=== PATIENT | male | born 1965 | race Caucasian/White ===

== ENCOUNTER 2018-06-14 12:07 | Emergency (ER) | payer BC, OTHER ==
[2018-06-14] MEDS ORDERED: Ondansetron 4 MG/2 ML SDV IVPUSH ONE (13:06)
[2018-06-14] MEDS ORDERED: Sodium Chloride 0.9% 10 ML Syringe FLUSH PRN (13:06)
[2018-06-14] MEDS ORDERED: HYDROmorphone 0.5 MG/0.5 ML Syringe IVPUSH ONE ×2 (13:06→16:12)
--- NOTE | 2018-06-14 13:11 | EDM.PDOC ---
ED HPI GENERAL MEDICAL PROBLEM - General Chief Complaint: Upper Extremity Injury/Pain Stated Complaint: FLUIDS IN ELBOW AFTER SURGERY/CHEST PAIN Time Seen by Provider: 06/14/18 12:52 Source of Information: Reports: Patient History Limitations: Reports: No Limitations - History of Present Illness INITIAL COMMENTS - FREE TEXT/NARRATIVE: On exam patient does have a red and swollen right olecranon. He is able to flex and extend the arm at the elbow with increasing pain noted to the olecranon. In addition he complains of chronic wrist pain since having surgery on the affected extremity 29 April at [facility]. It was found to be gout related. He has since beeb evaluated by Kerby lEisa weekly since surgery. He was taking tramadol but became nauseated with this medication only when taken on an empty stomach. He's also been taking indomethacin with no relief. As of recently he's been taking Tylenol. Pain is localized with no radiation. In addition he has been experiencing some intermittent chest discomfort that comes and goes described as spasming sensation. States he is mildly short of breath today. There is no history of DVT or PE. He has noticed some increased swelling to his right extremity with increasing pain to his right ankle. He states this is following a pattern of gout. Denies increasing pain with palpation of the posterior aspect of the leg noted. He denies any recent trauma that precipitated the swelling to the right ankle. Again he's been having some intermittent pain to his chest. Pain is worse with taking a deep breath. Described as a sharp sensation that would wax and wane with intensity. Worsened with palpation and taking a deep breath.He himself has no history of coronary disease but notes his dad at age 57. Denies any pain into his abdomen or pain radiating into his lower extremities from his abdomen. Patient does carry a history of hypertension, hypercholesterolemia, and gout. Patient does not smoke. Alcohol use seldom. Denies any increased intake of red meats. Current medications include Tylenol, allopurinol, aspirin, indomethacin, and altace. Right Elbow Pain Score (Numeric/FACES): 10 - Related Data Allergies Allergy/AdvReac Type Severity Reaction Status Date / Time tramadol Allergy Stomach Verified 06/14/18 12:19 Upset Home Meds: Home Meds Acetaminophen 325 mg PO 06/14/18 [History] Acetaminophen/HYDROcodone [Corral 325-5 MG] 1 tab PO Q6H PRN #12 tablet 06/14/18 [Rx] Allopurinol [Zyloprim] 100 mg PO DAILY 06/14/18 [History] Aspirin [Halfprin] 06/14/18 [History] Clindamycin HCl 300 mg PO TID #30 capsule 06/14/18 [Rx] Indomethacin [Indocin] 50 mg PO BID 06/14/18 [History] Metoclopramide HCl [Reglan] 5 mg PO TID PRN #12 tablet 06/14/18 [Rx] Ramipril [Altace] 10 mg PO DAILY 06/14/18 [History] Sennosides/Docusate Sodium [Senna-Docusate Sodium Tablet] 1 each PO 06/14/18 [ History] Sulfamethoxazole/Trimethoprim [Sulfamethoxazole-Tmp Ds Tablet] 06/14/18 [ History] Past Medical History Cardiovascular History: Reports: High Cholesterol Social & Family History - Tobacco Use Smoking Status *Q: Unknown Ever Smoked Review of Systems - Review of Systems Review Of Systems: ROS reveals no pertinent complaints other than HPI. ED EXAM, GENERAL - Physical Exam Exam: See Below Exam Limited By: No Limitations General Appearance: Alert, WD/WN, Mild Distress Eye Exam: Bilateral Eye: PERRL Ears: Hearing Grossly Normal Nose: Normal Inspection Throat/Mouth: Normal Voice, No Airway Compromise Neck: Supple, Carotid Bruit Respiratory/Chest: No Respiratory Distress, Lungs Clear, Normal Breath Sounds, No Accessory Muscle Use, Chest Non-Tender Cardiovascular: Normal Peripheral Pulses, Regular Rate, Rhythm, No Murmur Peripheral Pulses: 2+: Radial (L), Radial (R), Posterior Tibial (L), Posterior Tibial (R) GI/Abdominal: Normal Bowel Sounds, Soft, Non-Tender, No Organomegaly, No Distention Back Exam: Normal Inspection. No: CVA Tenderness (L), CVA Tenderness (R) Extremities: Normal Inspection, Normal Range of Motion, Non-Tender, No Pedal Edema, Normal Capillary Refill, Other (Increased swelling and redness to the right elbow with pain pinpoint along the olecranon. Pain is worsen with flexion extension of the arm at the elbow. No sensory changes distally. Continues to have pain to the right wrist which she states is chronic. Surgical scar to the dorsal aspect of the right wrist. No sensory changes noted. On examination the right lower extremity increased swelling to the right ankle with no stomach and pain with palpation. No sensory changes noted. Swelling to the right leg also noted in comparison to the left leg. No pain along the posterior aspect of the leg. Skin is pink warm and dry. Peripheral pulses are intact.) Neurological: Alert, Oriented, CN II-XII Intact, Normal Cognition, Normal Gait, No Motor/Sensory Deficits Psychiatric: Normal Affect, Normal Mood Skin Exam: Warm, Dry, Intact Course - Vital Signs Last Recorded V/S: Last Vital Signs Temp 98.1 F 06/14/18 12:19 Pulse 97 06/14/18 12:19 Resp 18 06/14/18 12:19 BP 122/97 H 06/14/18 12:19 Pulse Ox 97 06/14/18 12:19 - Orders/Labs/Meds Orders: Active Orders 24 hr Category Date Time Status EKG Documentation Completion [RC] ASDIRECTED Care 06/14/18 12:37 Active Peripheral IV Care [RC] . DIRECTED Care 06/14/18 13:06 Active CULTURE BODY FLUID + SMEAR [RM] Stat Lab 06/14/18 15:13 Ordered SYNOVIAL CRYSTALS Stat Lab 06/14/18 15:04 Received Peripheral IV Insertion Adult [OM.PC] Routine Oth 06/14/18 13:06 Ordered EKG 12 Lead [EK] Stat Ther 06/14/18 12:36 Ordered Labs: Laboratory Tests 06/14/18 06/14/18 06/14/18 Range/Units 13:15 13:15 13:15 WBC 12.12 H (4.23-9.07) K/mm3 RBC 4.88 (4.63-6.08) M/mm3 Hgb 14.9 (13.7-17.5) gm/L Hct 44.8 (40.1-51.0) % MCV 91.8 (79.0-92.2) fl MCH 30.5 (25.7-32.2) pg MCHC 33.3 (32.2-35.5) g/dl RDW Std Deviation 45.4 H (35.1-43.9) fL Plt Count 366 H (163-337) K/mm3 MPV 8.7 L (9.4-12.3) fl Neutrophils % (Manual) 87 H (40-60) % Band Neutrophils % 0 (0-10) % Lymphocytes % (Manual) 5 L (20-40) % Atypical Lymphs % 0 % Monocytes % (Manual) 8 (2-10) % Eosinophils % (Manual) 0 L (0.8-7.0) % Basophils % (Manual) 0 L (0.2-1.2) Platelet Estimate Adequate RBC Morph Comment Normal D-Dimer, Quantitative 1.10 H (0.19-0.50) mg/L Sodium 140 (136-145) mEq/L Potassium 3.8 (3.5-5.1) mEq/L Chloride 104 (98-107) mEq/L Carbon Dioxide 27 (21-32) mEq/L Anion Gap 12.8 (5-15) BUN 17 (7-18) mg/dL Creatinine 1.2 (0.7-1.3) mg/dL Est Cr Clr Drug Dosing 82.30 mL/min Estimated GFR (MDRD) > 60 (>60) mL/min BUN/Creatinine Ratio 14.2 (14-18) Glucose 112 H (74-106) mg/dL Uric Acid 6.5 (3.5-7.2) mg/dL Calcium 9.5 (8.5-10.1) mg/dL Total Bilirubin 1.2 H (0.2-1.0) mg/dL AST 14 L (15-37) U/L ALT 30 (16-63) U/L Alkaline Phosphatase 80 (46-116) U/L Troponin I < 0.017 (0.00-0.056) ng/mL C-Reactive Protein 8.7 H* (<1.0) mg/dL Total Protein 7.9 (6.4-8.2) g/dl Albumin 3.7 (3.4-5.0) g/dl Globulin 4.2 gm/dL Albumin/Globulin Ratio 0.9 L (1-2) Fluid Type Fluid Volume ML Fluid Color Fluid Appearance Fluid pH (4.5-10.0) Fluid WBC (0.20-0.60) k/mm*3 Fluid RBC (0.00-0.010) 10*6/uL Fluid Diff Comment Fluid Glucose mg/dL Fluid Total Protein gm/dl 06/14/18 06/14/18 Range/Units 15:04 15:04 WBC (4.23-9.07) K/mm3 RBC (4.63-6.08) M/mm3 Hgb (13.7-17.5) gm/L Hct (40.1-51.0) % MCV (79.0-92.2) fl MCH (25.7-32.2) pg MCHC (32.2-35.5) g/dl RDW Std Deviation (35.1-43.9) fL Plt Count (163-337) K/mm3 MPV (9.4-12.3) fl Neutrophils % (Manual) (40-60) % Band Neutrophils % (0-10) % Lymphocytes % (Manual) (20-40) % Atypical Lymphs % % Monocytes % (Manual) (2-10) % Eosinophils % (Manual) (0.8-7.0) % Basophils % (Manual) (0.2-1.2) Platelet Estimate RBC Morph Comment D-Dimer, Quantitative (0.19-0.50) mg/L Sodium (136-145) mEq/L Potassium (3.5-5.1) mEq/L Chloride (98-107) mEq/L Carbon Dioxide (21-32) mEq/L Anion Gap (5-15) BUN (7-18) mg/dL Creatinine (0.7-1.3) mg/dL Est Cr Clr Drug Dosing mL/min Estimated GFR (MDRD) (>60) mL/min BUN/Creatinine Ratio (14-18) Glucose (74-106) mg/dL Uric Acid (3.5-7.2) mg/dL Calcium (8.5-10.1) mg/dL Total Bilirubin (0.2-1.0) mg/dL AST (15-37) U/L ALT (16-63) U/L Alkaline Phosphatase (46-116) U/L Troponin I (0.00-0.056) ng/mL C-Reactive Protein (<1.0) mg/dL Total Protein (6.4-8.2) g/dl Albumin (3.4-5.0) g/dl Globulin gm/dL Albumin/Globulin Ratio (1-2) Fluid Type Oth Fluid Volume 11 ML Fluid Color Yellow Fluid Appearance Cloudy Fluid pH 8.0 (4.5-10.0) Fluid WBC 5.90 H (0.20-0.60) k/mm*3 Fluid RBC (0.00-0.010) 10*6/uL Fluid Diff Comment Not Reportable Fluid Glucose 51 mg/dL Fluid Total Protein 4.6 gm/dl Meds: Medications Discontinued Medications Generic Name Dose Route Start Last Admin Trade Name Freq PRN Reason Stop Dose Admin Hydromorphone HCl 0.5 mg 06/14/18 13:06 06/14/18 13:17 Dilaudid IVPUSH 06/14/18 13:07 0.5 mg ONETIME ONE Administration Hydromorphone HCl 0.5 mg 06/14/18 16:12 06/14/18 16:32 Dilaudid IVPUSH 06/14/18 16:13 0.5 mg ONETIME ONE Administration Sodium Chloride 1,000 mls @ 150 mls/hr 06/14/18 13:15 06/14/18 13:17 Normal Saline IV 150 mls/hr ASDIRECTED ANGELLA Administration Cefazolin Sodium/Dextrose 1 gm 50 mls @ 100 mls/hr 06/14/18 14:55 06/14/18 15 :13 / Premix IV 06/14/18 15:24 100 mls/hr ONETIME ONE Administration Sodium Chloride 100 mls @ 60 mls/hr 06/14/18 15:00 06/14/18 15:31 Normal Saline IV 60 mls/hr ASDIRECTED ANGELLA Administration Clindamycin Phosphate 600 mg/ 104 mls @ 100 mls/hr 06/14/18 16:30 06/14/18 16 :36 Sodium Chloride IV 06/14/18 17:32 100 mls/hr ONETIME ONE Administration Iopamidol 100 ml 06/14/18 14:57 06/14/18 15:27 Isovue-370 (76%) IV 06/14/18 14:58 100 ml ONETIME ONE Administration Ondansetron HCl 4 mg 06/14/18 13:06 06/14/18 13:16 Zofran IVPUSH 06/14/18 13:07 4 mg ONETIME ONE Administration Sodium Chloride 10 ml 06/14/18 13:06 06/14/18 13:17 Saline Flush FLUSH 10 ml ASDIRECTED PRN Administration Keep Vein Open Sodium Chloride 10 ml 06/14/18 14:58 06/14/18 15:28 Saline Flush FLUSH 06/14/18 14:59 10 ml ONETIME ONE Administration - Re-Assessments/Exams Free Text/Narrative Re-Assessment/Exam: IV established with Dilaudid 0.5 mg IVP, Zofran 4 mg IVP, and IV fluids. Initial labs and studies will include: CBC, chem 14, CRP, d-dimer, troponin, uric acid, chest x-ray one view, elbow two-view, and feel duplex of the right lower extremity. EKG was obtained indicating sinus rhythm at a rate 94 with a AR interval 173 and QTC of 518. No obvious ST changes. Low voltage throughout. Labs reviewed: White blood cell count 12.12, platelet count 366, hemoglobin normal, neutrophil percentage is increased 87 with no left shift. D-dimer elevated 1.10. Glucose 112. Creatinine normal. Sodium potassium normal as well. AG 4.8. Troponin normal. CRP 8.7. CTA of the chest has been ordered. Utilizing sterile technique aspirated the right olecranon. Risk, benefits, and alternative treatments discussed with the patient. I offered to have the orthopedic surgeon to aspirate the bursa sac. Patient has agreed to proceed. Aspirated approximately 18 mL of yellow fluid with small piece of tissue present. I did not aspirate the joint. Once completed patient is able to flex and extend the elbow with decreased pain noted. 1 gram of ancef has been ordered. CTA of the chest: Less than optimal opacification of the pulmonary arteries. As mentioned above, no findings of pulmonary embolism are seen within the remainder segmental branches, smaller subsegmental pulmonary emboli could be missed. Other incidental findings as noted above. Ultrasound Right leg: No evidence of deep venous thrombosis within the right lower extremity. X-ray of the right elbow soft tissue swelling. No acute bony abnormalities as seen. Chest x-ray revealed nothing acute is seen on AP chest x-ray. 1610 body fluid results:PH 8.0, white blood cell count 5.90, glucose 51, total protein 4.[address] Gloria. Suggested starting clindamycin. If no improvements in two days have the patient followup in his clinic. I have ordered IV clindamycin 600mg IV. Return precautions discussed with the patient. Patient agrees with plan with being discharged home. He will call and make an appointment to see Dr. Gloria in the next few days. Departure - Departure Time of Disposition: 16:31 Disposition: Home, Self-Care 01 Condition: Good Clinical Impression: Atypical chest pain, Prolonged Q-T interval on ECG Septic bursitis of elbow Qualifiers: Laterality: right Qualified Code(s): M71.121 - Other infective bursitis, right elbow - Discharge Information Prescriptions: Acetaminophen/HYDROcodone [Corral 325-5 MG] 1 tab PO Q6H PRN #12 tablet PRN Reason: Pain (Severe 7-10) Clindamycin HCl 300 mg PO TID #30 capsule Metoclopramide HCl [Reglan] 5 mg PO TID PRN #12 tablet PRN Reason: Nausea/Vomiting Instructions: Chest Wall Pain, [id number], Elbow Bursitis, [id number] Referrals: Enrique Gloria MD [Physician] - Forms: ED Department Discharge Additional Instructions: You have septic bursitis of the right elbow. Take the clindamycin 300 mg 3 times a day for the next 10 days. Utilize the Reglan as prescribed for intermittent nausea and vomiting. Taking Corral one tab every 6 hours as needed for severe pain. Continue taking all the home medications as prescribed. Apply warm compresses to the affected extremity as well as the Mg wrap for compression. Please call make an appointment with Dr. Zev dunaway to be evaluated in 2-3 days for reevaluation. If symptoms are improving appointment with Dr. Gloria is not needed. Please return to the ED at any time if he developed any new or worsening symptoms. In relation to the chest pain that comes and goes described as sharp in nature. Suspect this is more chest wall in origin since it worsens with taking a deep breath and with palpation. The Corral should subside this discomfort. Monitor for any new or worsening symptoms. Refrain from any activities that cause worsening discomfort. EKG found that she had prolonged QT intervals. Please follow up with her PCP this week for reevaluation. - My Orders Last 24 Hours: My Active Orders 06/14/18 12:36 EKG 12 Lead [EK] Stat 06/14/18 12:37 EKG Documentation Completion [RC] ASDIRECTED 06/14/18 13:06 Peripheral IV Care [RC] . DIRECTED Peripheral IV Insertion Adult [OM.PC] Routine 06/14/18 15:04 SYNOVIAL CRYSTALS Stat 06/14/18 15:13 CULTURE BODY FLUID + SMEAR [RM] Stat - Assessment/Plan Last 24 Hours: My Active Orders 06/14/18 12:36 EKG 12 Lead [EK] Stat 06/14/18 12:37 EKG Documentation Completion [RC] ASDIRECTED 06/14/18 13:06 Peripheral IV Care [RC] . DIRECTED Peripheral IV Insertion Adult [OM.PC] Routine 06/14/18 15:04 SYNOVIAL CRYSTALS Stat 06/14/18 15:13 CULTURE BODY FLUID + SMEAR [RM] Stat
[2018-06-14] MEDS ORDERED: Sodium Chloride 0.9% 1,000 ML IV SCH (13:15)
--- NOTE | 2018-06-14 14:28 | CR ---
Right elbow: Two views of the right elbow were obtained. Comparison: No previous elbow study. Soft tissue swelling is noted posteriorly. Joint spaces are preserved. No joint effusion is seen. No acute fracture or other abnormality is seen. Minimal calcification is noted off the coronoid process which is felt to be incidental. Impression: 1. Soft tissue swelling. No acute bony abnormality is seen. Diagnostic code #2
--- NOTE | 2018-06-14 14:28 | CR ---
Chest: Frontal view of the chest was obtained in AP projection. Comparison: No previous chest x-ray is available. Heart size and mediastinum are within normal limits. Lungs are clear. Bony structures are grossly intact. Impression: 1. Nothing acute is seen on AP chest x-ray. Diagnostic code #1
[2018-06-14] MEDS ORDERED: ceFAZolin 1 GM in Premix Bag 1 BAG IV ONE (14:55)
[2018-06-14] MEDS ORDERED: Iopamidol 755 Mg/ML 200 ML Bottle IV ONE (14:57)
[2018-06-14] MEDS ORDERED: Sodium Chloride 0.9% 10 ML Syringe FLUSH ONE (14:58)
[2018-06-14] MEDS ORDERED: Sodium Chloride 0.9% 100 ML IV SCH (15:00)
--- NOTE | 2018-06-14 15:24 | US ---
Right lower extremity deep venous ultrasound: Duplex and color flow imaging was obtained of the right common femoral, proximal greater saphenous, superficial femoral, popliteal, posterior tibial and peroneal veins. Comparison: No prior venous ultrasound. Findings: Normal phasic flow, augmentation and compression is seen. Impression: 1. No evidence of deep venous thrombosis within the right lower extremity. Diagnostic code #1
--- NOTE | 2018-06-14 15:45 | CT ---
CT chest Technique: Multiple axial sections through the chest were obtained. Intravenous contrast was utilized. Study performed as a pulmonary angiogram protocol. Findings: Pulmonary arteries are not optimally opacified. No filling defects are seen within the main or segmental branches but smaller subsegmental pulmonary emboli could be missed. Aorta shows no aneurysm. Mild coronary artery calcification is seen. No pericardial thickening is seen. Small portion of the visualized upper abdominal structures appear within normal limits. Lung window settings were reviewed which shows mild dependent atelectasis. No acute parenchymal change is appreciated. No pleural effusions are seen. Bone window settings were reviewed which shows no acute osseous abnormality. Impression: 1. Less than optimal opacification of the pulmonary arteries. As mentioned above, no findings of pulmonary embolism are seen within the main or segmental branches, smaller subsegmental pulmonary emboli could be missed. 2. Other incidental findings as noted above. Diagnostic code #2
[2018-06-14] MEDS ORDERED: Clindamycin Phosphate 600 MG in Sodium Chloride 0.9% 100 ML IV ONE (16:30)
== END 2018-06-14 17:45 | disposition home or self-care (01) ==
LOC: JD.ED 12:07
DX: M71.121 Other infective bursitis, right elbow (principal); R07.89 Other chest pain; R94.31 Abnormal electrocardiogram [ECG] [EKG]; E78.00 Pure hypercholesterolemia, unspecified; Z88.5 Allergy status to narcotic agent; Z79.899 Other long term (current) drug therapy
CPT/HCPCS: 36415; 71045; 71275; 73070; 80053; 82945; 83986; 84157; 84484; 84550; 85007; 85027; 85379; 86140; 87070; 87205; 89050; 89060; 93005; 93971; 96361; 96365; 96367; 96375; 96376; 99285; J0690; J1170; J2405; J3490; J7030; J7040; Q9967; 93010

== ENCOUNTER 2020-09-28 16:09 | Emergency (ER) | payer BC, OTHER ==
--- NOTE | 2020-09-28 17:28 | EDM.PDOC ---
ED HPI GENERAL MEDICAL PROBLEM - General Chief Complaint: Fever Stated Complaint: SENT BY [place] Time Seen by Provider: 09/28/20 16:35 Source of Information: Reports: Patient, RN Notes Reviewed History Limitations: Reports: No Limitations - History of Present Illness INITIAL COMMENTS - FREE TEXT/NARRATIVE: Patient is a 55-year-old male presenting to the emergency department at the request of the [facility] (formerly [facility]3] for evaluation with regards to a 5-day history of cough, fever, chills, loss of taste and smell, decreased appetite, fatigue, nausea. He denies any chest pain but states when he coughs he does have some burning in his chest. Denies any chronic lung conditions. I did speak with the nurse practitioner at the clinic and she reported that they were unable to Covid testing in the clinic. He would not have results for the next few days. She did complete blood work and it was grossly unremarkable with exception of a white blood cell count being low at 4.7. Patient reports he did have Covid back in January. He has not received the Covid vaccinations. He also states that over the last 5 days he has been spraying west with a new herbicide, however states he has not been breathing it in. He does wear gloves when handling it. He reports temperatures at home of 101-102. He has been taking Tylenol 1000 mg every 8 hours. Temperature in the clinic was 102.6. He did receive Tylenol at time. He is currently afebrile at the time of triage. Vital signs in triage show blood pressure elevated 167/119, respiratory rate 20, temperature 98.6, pulse 83, oxygen 98% on room air. Treatments [employer]: Reports: Other (see below) Other Treatments [employer]: tylenol - Related Data Allergies Allergy/AdvReac Type Severity Reaction Status Date / Time tramadol Allergy Severe Stomach Verified 09/28/20 16:26 Upset Home Meds: Home Meds allopurinoL [Zyloprim] 100 mg PO DAILY 06/14/18 [History] ramipriL [Altace] 10 mg PO DAILY 06/14/18 [History] Diclofenac Sodium [Voltaren 1%] 1 applic TOP BID PRN 09/27/18 [History] Rosuvastatin [Crestor] 10 mg PO DAILY 09/27/18 [History] predniSONE [Prednisone] 50 mg PO DAILY #7 tablet 09/27/18 [Rx] traMADol HCl [Tramadol HCl] 50 mg PO Q6H PRN 09/27/18 [History] Past Medical History Cardiovascular History: Reports: High Cholesterol, Hypertension Other Cardiovascular History: unable to get stent placed 2 yrs ago Gastrointestinal History: Reports: GERD Musculoskeletal History: Reports: Arthritis, Back Pain, Chronic, Gout Psychiatric History: Reports: Depression Social & Family History - Tobacco Use Tobacco Use Status *Q: Never Tobacco User - Caffeine Use Caffeine Use: Reports: Coffee, Soda, Tea - Recreational Drug Use Recreational Drug Use: No ED ROS GENERAL - Review of Systems Review Of Systems: See Below Constitutional: Reports: Fever, Chills, Fatigue, Decreased Appetite HEENT: Reports: Rhinitis, Sinus Problem Respiratory: Reports: Shortness of Breath, Pleuritic Chest Pain, Cough. Denies: Wheezing Cardiovascular: Denies: Chest Pain, Lightheadedness, Palpitations, Syncope Endocrine: Reports: Fatigue GI/Abdominal: Reports: No Symptoms : Reports: No Symptoms Musculoskeletal: Reports: No Symptoms Skin: Reports: No Symptoms. Denies: Rash Neurological: Denies: Confusion, Dizziness Psychiatric: Reports: No Symptoms Hematologic/Lymphatic: Reports: No Symptoms Immunologic: Reports: No Symptoms ED EXAM, GENERAL - Physical Exam Exam: See Below Exam Limited By: No Limitations General Appearance: Alert, WD/WN, No Apparent Distress Eye Exam: Bilateral Eye: PERRL Nose: Normal Inspection, Normal Mucosa, No Blood Respiratory/Chest: No Respiratory Distress, Lungs Clear, Normal Breath Sounds, No Accessory Muscle Use, Chest Non-Tender Cardiovascular: Normal Peripheral Pulses, Regular Rate, Rhythm, No Edema, No Gallop, No JVD, No Murmur, No Rub Neurological: Alert, Oriented, CN II-XII Intact, Normal Cognition, Normal Gait, Normal Reflexes, No Motor/Sensory Deficits Psychiatric: Normal Affect, Normal Mood Skin Exam: Warm, Dry, Intact, Normal Color, No Rash Course - Vital Signs Last Recorded V/S: Last Vital Signs Temp 98.6 F 09/28/20 16:20 Pulse 83 09/28/20 16:20 Resp 20 09/28/20 16:20 BP 167/119 H 09/28/20 16:20 Pulse Ox 98 09/28/20 16:20 - Orders/Labs/Meds Labs: Laboratory Tests 09/28/20 Range/Units 16:25 SARS-CoV-2 RNA ([facility]) Positive H (NEGATIVE) - Re-Assessments/Exams Free Text/Narrative Re-Assessment/Exam: Patient is a 55-year-old male presenting to the emergency department with complaints of cough, fever, chills, loss of taste and smell, creased appetite, increased fatigue, and nausea. He reports that he had Covid back in January but has not received the Covid vaccines. Patient does appear that he is not feel well, however exam is otherwise unremarkable. Lung sounds are clear. Patient does not have chest pain but states when he coughs he has some burning in his chest. Findings are concerning for COVID-19. Nurse did collect Covid test on triage. I have ordered chest x-ray. Blood work was completed in the clinic, therefore there is no need to repeat at this time. With regards to the herbi cide that the patient has been sprain. The clinic did speak with poison control who stated that effects of possible exposure would be nausea, vomiting, and diarrhea. Their recommendation was to avoid reexposure. This would not explain patient's symptoms of cough, fever, loss of taste and smell, fatigue, and loss of appetite. I suspect the patient likely has COVID-19. 09/28/20 17:25 His Covid test did come back positive. Oxygen saturations have maintained 95 to 96% on room air. Chest x-ray shows no definitive evidence of infiltrates. Formal read by radiologist is pending. I have provided the patient with a pulse oximeter to take home with him so that he may monitor his oxygen saturations. He unfortunate does not meet the criteria for monoclonal antibody infusion. He is currently on prednisone 50 mg daily ongoing for treatment of recurrent gout. Therefore treatment with dexamethasone to be contraindicated. Recommend rest, increase fluid, Tylenol and ibuprofen as needed. Also discussed return precautions including increasing shortness of breath, oxygen saturation maintaining below 90% on room air, chest pain, or any other symptoms of concern. He verbalized understanding of this. Discharge instructions as documented. Departure - Departure Time of Disposition: 17:29 Disposition: Home, Self-Care 01 Condition: Good Clinical Impression: COVID-19 - Discharge Information *PRESCRIPTION DRUG MONITORING PROGRAM REVIEWED*: No *COPY OF PRESCRIPTION DRUG MONITORING REPORT IN PATIENT PAOLA: No Instructions: COVID-19 Frequently Asked Questions, COVID-19 Referrals: PCP,None [Primary Care Provider] - Forms: ED Department Discharge Additional Instructions: You were seen in the emergency department today for a 5-day history of cough, fever, chills, decreased appetite, loss of taste and smell, increased fatigue, nausea. Covid testing was completed and you were found to be Covid positive. Chest x-ray did not show any signs of pneumonia. As we discussed, this is a viral illness for which there is no specific treatment. Recommend symptomatic treatment including rest, increase fluid intake, Tylenol and ibuprofen as needed for fever and discomfort. You have been sent home with a pulse oximeter. Recommend they check your oxygen saturations periodically throughout the day. If you are maintaining an oxygen saturation below 90% or you experience any worsening symptoms including chest pain, worsening shortness of breath, or any other symptoms of concern, recommend return to the emergency department for reevaluation. Follow the recommendation of the [facility] for your quarantine. They should be in contact with you within the next day or 2. Sepsis Event Note (ED) - Evaluation Sepsis Screening Result: No Definite Risk - Focused Exam Vital Signs: Vital Signs Temp Pulse Resp BP Pulse Ox 09/28/20 16:20 98.6 F 83 20 167/119 H 98
--- NOTE | 2020-09-28 17:28 | CR ---
Chest: Portable view of the chest was obtained. Comparison: Prior chest CT of 06/14/18 and chest x-ray also of 06/14/18. Heart size and mediastinum are normal. Increased density is noted within the right mid and lower lung as well as more prominent density within the left lung base. Upper lungs are clear. Bony structure shows nothing acute. Impression: 1. Findings suspicious for mild bibasilar pneumonia. 2. No additional abnormality is seen. Diagnostic code #3
== END 2020-09-28 17:46 | disposition home or self-care (01) ==
LOC: JD.ED 16:09
DX: U07.1 COVID-19 (principal); E78.00 Pure hypercholesterolemia, unspecified; I10 Essential (primary) hypertension; Z88.5 Allergy status to narcotic agent; Z79.899 Other long term (current) drug therapy
CPT/HCPCS: 71045; 71045-26; 99283-25; U0002